=== PATIENT | female | born 1955 | race Native Hawaiian/Other Pacific Islander ===

== ENCOUNTER 2017-01-06 07:35 | Emergency (ER) | payer BC ==
[~2017-01-06] VITALS: Ht 157.5 cm; Wt 65.8 kg
[2017-01-06 07:48] VITALS: TEMP 97.8
[2017-01-06 08:33] LABS: PLATELET COUNT 185 K/uL (152-353)
[2017-01-06 08:44] LABS: POTASSIUM 3.9 mmol/L (3.6-5.2); SODIUM 139 mmol/L (136-145)
[2017-01-06 09:33] VITALS: BP 150/84
== END 2017-01-06 09:33 | disposition home or self-care (01) ==
LOC: ED 07:35
DX: N39.0 Urinary tract infection, site not specified (principal); N20.1 Calculus of ureter
CPT/HCPCS: 80053; 81000; 85027; 87086; 87088; 96374; 99283; J1885

== ENCOUNTER 2017-07-23 08:28 | Outpatient (CLI) | payer BC | END 2017-07-23 20:04 | disposition home or self-care (01) | LOC: MAMMO 08:28 | DX: Z12.31 Encounter for screening mammogram for malignant neoplasm of breast (principal) ==

== ENCOUNTER 2018-11-11 09:27 | Outpatient (CLI) | payer BC | END 2018-11-11 20:30 | disposition home or self-care (01) | LOC: MAMMO 09:27 | DX: Z12.31 Encounter for screening mammogram for malignant neoplasm of breast (principal) ==

== ENCOUNTER 2018-11-12 13:54 | Outpatient (CLI) | payer BC | END 2018-11-12 21:08 | disposition home or self-care (01) | LOC: RAD 13:54 | DX: M54.2 Cervicalgia (principal); M54.40 Lumbago with sciatica, unspecified side ==

== ENCOUNTER 2020-03-22 08:35 | Outpatient (CLI) | payer BC | END 2020-03-23 00:22 | disposition home or self-care (01) | LOC: MAMMO 08:35 | DX: Z12.31 Encounter for screening mammogram for malignant neoplasm of breast (principal) ==

== ENCOUNTER 2021-03-15 10:27 | Outpatient (CLI) | payer OTHER | END 2021-03-15 19:02 | disposition home or self-care (01) | LOC: RAD 10:27 | PROVIDERS: ATTEND Family Medicine | DX: R10.84 Generalized abdominal pain (principal); K59.09 Other constipation; R19.7 Diarrhea, unspecified | CPT/HCPCS: 81000; 82272; 83630; 87015; 87045; 87086; 87088; 87324; 87328; 87329; 87449; 87899 ==

== ENCOUNTER 2022-11-15 09:18 | Outpatient (CLI) | payer OTHER | END 2022-11-15 19:10 | disposition home or self-care (01) | LOC: MAMMO 09:18 | PROVIDERS: ATTEND Registered Nurse | DX: Z12.31 Encounter for screening mammogram for malignant neoplasm of breast (principal) ==

== ENCOUNTER 2022-12-19 09:00 | Emergency (ER) | payer OTHER ==
[~2022-12-19] VITALS: Ht 162.6 cm; Wt 74.8 kg
[2022-12-19 09:05] VITALS: TEMP 97.9
[2022-12-19 11:42] VITALS: BP 149/89
== END 2022-12-19 11:42 | disposition home or self-care (01) ==
LOC: ED 09:00
DX: M54.31 Sciatica, right side (principal); S76.011A Strain of muscle, fascia and tendon of right hip, initial encounter
CPT/HCPCS: 96372; 99283; J1100; J1885